=== PATIENT | male | born 1930 | race Caucasian/White ===

== ENCOUNTER 2017-08-07 13:03 | Outpatient (CLI) | payer OTHER ==
[2016-07-21 13:13] VITALS: O2SAT 95
== END 2017-08-07 13:04 | disposition home or self-care (01) | DRG 561 ==
LOC: RAD 13:03
PROVIDERS: ATTEND Orthopaedic Surgery
DX: Z47.1 Aftercare following joint replacement surgery (principal); M25.462 Effusion, left knee; R93.7 Abnormal findings on diagnostic imaging of other parts of musculoskeletal system; Z96.652 Presence of left artificial knee joint
CPT/HCPCS: 73560

== ENCOUNTER 2018-01-23 13:34 | Outpatient (CLI) | payer OTHER ==
[2016-07-21 13:13] VITALS: O2SAT 95
== END 2018-01-23 13:35 | disposition home or self-care (01) | DRG 556 ==
LOC: CONVCARE 13:34
PROVIDERS: ATTEND Orthopaedic Surgery
DX: M25.512 Pain in left shoulder (principal); M12.811 Other specific arthropathies, not elsewhere classified, right shoulder; M12.812 Other specific arthropathies, not elsewhere classified, left shoulder
CPT/HCPCS: 73030